=== PATIENT | female | born 1995 | race Caucasian/White ===

== ENCOUNTER 2017-07-28 10:09 | Day surgery (SDC) | payer OTHER ==
[2017-07-28 12:09] LABS: CONTROL LINE UCG INT CTR LINE PRESENT; URINE PREG TEST NEGATIVE (NEGATIVE)
[2017-07-28] MEDS ORDERED: fentaNYL 100 MCG/2 ML INJECTION (J3010) As Ordered ×2 (12:49→15:43)
[2017-07-28] MEDS ORDERED: PROPOFOL 200 MG/20 ML VIAL As Ordered (12:49)
[2017-07-28] MEDS ORDERED: MIDAZOLAM INJ 2 MG/2 ML VIAL (J2250) As Ordered (12:49)
[2017-07-28] MEDS ORDERED: ROCURONIUM BROMIDE 50 MG/5 ML VIAL As Ordered (12:49)
[2017-07-28] MEDS ORDERED: LIDOCAINE 2% INJ 100 MG/5 ML SDV (FOR ANES.) As Ordered (12:49)
[2017-07-28] MEDS: CLINDAMYCIN 900 MG in APPROPRIATE DILUENT 1 EA IV (14:45)
[2017-07-28] MEDS: dexameTHASONE 4 MG/ML 1ML VIAL (J1100) IV (14:45)
[2017-07-28] MEDS: fentaNYL 100 MCG/2 ML INJECTION (J3010) IV (15:10)
[2017-07-28] MEDS ORDERED: ONDANSETRON 4MG/2ML VIAL (J2405) As Ordered (15:11)
[2017-07-28] MEDS: LIDOCAINE 2% W/ EPINEPHRINE 1.7 ML DENTAL INJ As Ordered (15:14)
[2017-07-28] MEDS ORDERED: MEPERIDINE INJ 25 MG/ML VIAL (J2175) IV (17:15)
[2017-07-28] MEDS ORDERED: ONDANSETRON 4MG/2ML VIAL (J2405) IV (17:15)
[2017-07-28] MEDS ORDERED: METOCLOPRAMIDE INJ 10MG/2ML VIAL (J2765) IV (17:15)
[2017-07-28] MEDS ORDERED: LR 1,000 ML IV (17:15)
[2017-07-28] MEDS: PERCOCET 5MG/325MG TAB PO (17:55)
== END 2017-07-28 18:30 | disposition home or self-care (01) ==
LOC: M SDC 10:09
DX: K02.9 Dental caries, unspecified (principal); F40.232 Fear of other medical care; I10 Essential (primary) hypertension; J45.909 Unspecified asthma, uncomplicated; F31.89 Other bipolar disorder; D49.6 Neoplasm of unspecified behavior of brain; H54.40 Blindness, one eye, unspecified eye; Q85.01 Neurofibromatosis, type 1; Q85.02 Neurofibromatosis, type 2; H93.3X9 Disorders of unspecified acoustic nerve; H90.42 Sensorineural hearing loss, unilateral, left ear, with unrestricted hearing on the contralateral side; J30.9 Allergic rhinitis, unspecified; K59.01 Slow transit constipation; F90.9 Attention-deficit hyperactivity disorder, unspecified type; D43.4 Neoplasm of uncertain behavior of spinal cord; G80.8 Other cerebral palsy; N31.9 Neuromuscular dysfunction of bladder, unspecified; Z88.1 Allergy status to other antibiotic agents; Z88.8 Allergy status to other drugs, medicaments and biological substances; Z79.899 Other long term (current) drug therapy; Z86.19 Personal history of other infectious and parasitic diseases; Z92.21 Personal history of antineoplastic chemotherapy
CPT/HCPCS: D9223